=== PATIENT | female | born 1990 | race African-American/Black ===

== ENCOUNTER 2016-05-03 19:21 | Emergency (ER) | payer OTHER ==
[2016-05-03] MEDS ORDERED: Ketorolac Tromethamine 60 MG/2 ML VIAL ONE (21:49)
== END 2016-05-03 20:49 | disposition home or self-care (01) ==
LOC: NAV ERS 19:21
DX: R51 Headache (principal); J45.909 Unspecified asthma, uncomplicated; Z79.899 Other long term (current) drug therapy
CPT/HCPCS: 96372; J1885

== ENCOUNTER 2016-09-20 21:14 | Emergency (ER) | payer OTHER ==
[2016-09-20] MEDS ORDERED: Ibuprofen 200 MG TAB ONE (21:36)
== END 2016-09-20 21:53 | disposition home or self-care (01) ==
LOC: NAV ERS 21:14
DX: G89.18 Other acute postprocedural pain (principal); J45.909 Unspecified asthma, uncomplicated
CPT/HCPCS: 99283

== ENCOUNTER 2016-09-25 21:23 | Emergency (ER) | payer OTHER ==
[2016-09-25] MEDS ORDERED: Acetaminophen 325 MG TAB ONE (21:51)
== END 2016-09-25 22:05 | disposition home or self-care (01) ==
LOC: NAV ERS 21:23
DX: R10.2 Pelvic and perineal pain (principal); R51 Headache; J45.909 Unspecified asthma, uncomplicated
CPT/HCPCS: 99283

== ENCOUNTER 2017-01-12 12:50 | Emergency (ER) | payer OTHER ==
[2017-01-12] MEDS ORDERED: Ibuprofen 800 MG TAB ONE (13:06)
[2017-01-12] MEDS ORDERED: Amoxicillin/Potassium Clav 875 MG TAB ONE (13:06)
[2017-01-12] MEDS ORDERED: predniSONE 20 MG TAB ONE (13:06)
== END 2017-01-12 13:20 | disposition home or self-care (01) ==
LOC: NAV ERS 12:50
DX: J02.9 Acute pharyngitis, unspecified (principal); D50.0 Iron deficiency anemia secondary to blood loss (chronic); J45.909 Unspecified asthma, uncomplicated; Z79.899 Other long term (current) drug therapy
CPT/HCPCS: 99282; J7506

== ENCOUNTER 2017-01-15 18:36 | Emergency (ER) | payer OTHER ==
[2017-01-15] MEDS ORDERED: Acetaminophen 500 MG TAB ONE (19:03)
== END 2017-01-15 19:53 | disposition home or self-care (01) ==
LOC: NAV ERS 18:36
DX: J02.9 Acute pharyngitis, unspecified (principal); J06.9 Acute upper respiratory infection, unspecified; D50.0 Iron deficiency anemia secondary to blood loss (chronic); J45.909 Unspecified asthma, uncomplicated; Z79.899 Other long term (current) drug therapy
CPT/HCPCS: 99282

== ENCOUNTER 2017-06-04 18:18 | Emergency (ER) | payer OTHER ==
[2017-06-04 19:12] LABS: Bilirubin Negative (Negative); Blood, Urine Negative (Negative); Glucose, Urine (Dipstick) Negative (Negative); Leukocyte Negative (Negative); Nitrite Negative (Negative); Protein, Urine (Dipstick) Trace mg/dL (Neg-Trace); Urobilinogen 0.2 mg/dL (0.2-1.0)
[2017-06-04 19:13] LABS: Clarity SL HAZY (Clear)
[2017-06-04 19:14] LABS: Pregnancy Test - Urine (BHCG) Negative (Negative); Pregu Control Background? CLEAR/WHITE (CLR/WHITE); Pregu Control Bar Appear? YES (CONTROL BAR)
[2017-06-04 19:21] LABS: Amphetamine Not Detected (NotDetected); Barbiturates Screen Not Detected (NotDetected); Benzodiazepine Screen Not Detected (NotDetected); Cocaine Metabolite Screen Not Detected (NotDetected); Medtox Control Line Valid? VALID (VALID); Methadone Not Detected (NotDetected); Methamphetamine Not Detected (NotDetected); Opiate Screen Not Detected (NotDetected); Oxycodone Screen Not Detected (NotDetected); Phencyclidine (PCP) Not Detected (NotDetected); THC/Cannabinoid Screen Not Detected (NotDetected); Tricyclic Screen Not Detected (NotDetected)
[2017-06-04] MEDS ORDERED: Ondansetron ODT 4 MG TAB ONE (19:33)
[2017-06-04] MEDS ORDERED: Ketorolac Tromethamine 30 MG/ML VIAL ONE (19:33)
== END 2017-06-04 19:50 | disposition home or self-care (01) ==
LOC: NAV ERS 18:18
DX: S29.011A Strain of muscle and tendon of front wall of thorax, initial encounter (principal); G43.909 Migraine, unspecified, not intractable, without status migrainosus; E66.9 Obesity, unspecified; J45.909 Unspecified asthma, uncomplicated; X58.XXXA Exposure to other specified factors, initial encounter; Y92.218 Other school as the place of occurrence of the external cause; Y99.0 Civilian activity done for income or pay
CPT/HCPCS: 80306; 81003; 81025; 96374; J1885; Q0162

== ENCOUNTER 2017-07-21 14:10 | Emergency (ER) | payer OTHER ==
[2017-07-21] MEDS ORDERED: Ketorolac Tromethamine 60 MG/2 ML VIAL ONE (14:34)
== END 2017-07-21 15:05 | disposition home or self-care (01) ==
LOC: NAV ERS 14:10
DX: G44.209 Tension-type headache, unspecified, not intractable (principal); R07.89 Other chest pain; E66.9 Obesity, unspecified; J45.909 Unspecified asthma, uncomplicated; D50.9 Iron deficiency anemia, unspecified
CPT/HCPCS: 93005; 96372; J1885

== ENCOUNTER 2017-10-09 12:08 | Emergency (ER) | payer OTHER ==
[2017-10-09] MEDS ORDERED: Ibuprofen 800 MG TAB ONE (12:25)
--- NOTE | 2017-10-09 12:57 | RAD ---
FOUR VIEWS LEFT KNEE: CLINICAL HISTORY: Left knee injury, pain. FINDINGS: There is mild joint capsular distention. No fracture or dislocation. There is mild asymmetric joint compartment narrowing, medially. IMPRESSION: 1. No fracture. 2. There is joint capsular distention. Correlate clinically. POS: [facility]
== END 2017-10-09 13:37 | disposition home or self-care (01) ==
LOC: NAV ERS 12:08
DX: S83.92XA Sprain of unspecified site of left knee, initial encounter (principal); D50.0 Iron deficiency anemia secondary to blood loss (chronic); J45.909 Unspecified asthma, uncomplicated; Z79.899 Other long term (current) drug therapy; X50.1XXA Overexertion from prolonged static or awkward postures, initial encounter; Y93.68 Activity, volleyball (beach) (court)

== ENCOUNTER 2018-07-01 23:39 | Emergency (ER) | payer OTHER, SELFPAY ==
[2018-07-02] MEDS ORDERED: Naproxen 500 MG TAB ONE (00:38)
--- NOTE | 2018-07-02 10:07 | RAD ---
RIGHT HIP 2 VIEWS: Date: 07/02/18 INDICATION: Slipped and fell, right hip pain. COMPARISON: None. FINDINGS: No acute fracture or subluxation is evident. Bone mineralization appears within normal limits. Right SI joint normal appearing. IMPRESSION: No acute osseous abnormality. POS: [facility]
== END 2018-07-02 00:41 | disposition home or self-care (01) ==
LOC: NAV ERS 23:39
DX: S01.81XA Laceration without foreign body of other part of head, initial encounter (principal); S00.03XA Contusion of scalp, initial encounter; S70.01XA Contusion of right hip, initial encounter; D50.9 Iron deficiency anemia, unspecified; J45.909 Unspecified asthma, uncomplicated; Z79.51 Long term (current) use of inhaled steroids; Z79.899 Other long term (current) drug therapy; W18.2XXA Fall in (into) shower or empty bathtub, initial encounter
CPT/HCPCS: 12011

== ENCOUNTER 2018-08-07 12:39 | Emergency (ER) | payer SELFPAY ==
[2018-08-07] MEDS ORDERED: Lidocaine Viscous Sol 2% 15 ml UD Cup ONE (13:23)
[2018-08-07] MEDS ORDERED: Mag-Al Plus 1200 MG/1200 MG/120 MG/30 ML UDCUP ONE (13:23)
== END 2018-08-07 14:15 | disposition home or self-care (01) ==
LOC: NAV ERS 12:39
DX: R10.13 Epigastric pain (principal); J45.909 Unspecified asthma, uncomplicated; Z79.899 Other long term (current) drug therapy
CPT/HCPCS: 93005; 94760

== ENCOUNTER 2018-12-09 16:14 | Emergency (ER) | payer OTHER, SELFPAY ==
[2018-12-09 17:12] LABS: Bilirubin Negative (Negative); Blood, Urine Negative (Negative); Clarity Cloudy (Clear); Glucose, Urine (Dipstick) Negative (Negative); Leukocyte Small (Negative); Nitrite Negative (Negative); Protein, Urine (Dipstick) 30 mg/dL (Neg-Trace)
[2018-12-09 17:24] LABS: Pregnancy Test - Urine (BHCG) Negative (Negative); Pregu Control Background? CLEAR/WHITE (CLR/WHITE); Pregu Control Bar Appear? YES (CONTROL BAR)
[2018-12-09 17:26] LABS: Amphetamine Not Detected (NotDetected); Barbiturates Screen Not Detected (NotDetected); Benzodiazepine Screen Not Detected (NotDetected); Cocaine Metabolite Screen Not Detected (NotDetected); Medtox Control Line Valid? VALID (VALID); Methadone Not Detected (NotDetected); Methamphetamine Not Detected (NotDetected); Opiate Screen Not Detected (NotDetected); Oxycodone Screen Not Detected (NotDetected); Phencyclidine (PCP) Not Detected (NotDetected); THC/Cannabinoid Screen Not Detected (NotDetected); Tricyclic Screen Not Detected (NotDetected)
[2018-12-09 17:27] LABS: ALT (SGPT) 15 U/L (8-55); AST (SGOT) 13 U/L (5-34); Albumin 3.8 g/dL (3.5-5.0); Alkaline Phosphatase 76 U/L (40-150); Anion Gap 12 mmol/L (10-20); BUN (Urea Nitrogen) 11 mg/dL (7.0-18.7); Bilirubin, Total 0.3 mg/dL (0.2-1.2); Calc. Creatinine Clearance 0 mL/min (70-130); Carbon Dioxide 25 mmol/L (22-29); Chloride 107 mmol/L (98-107); Estimated GFR-MDRD 78; Globulin 3.7 g/dL (2.4-3.5); Glucose 90 mg/dL (70-105); Potassium 3.7 mmol/L (3.5-5.1); Protein, Total 7.5 g/dL (6.0-8.3); Sodium 140 mmol/L (136-145)
[2018-12-09 17:29] LABS: Bacteria/HPF 1+ HPF (None Seen); RBC/HPF 0-3 HPF (0-3); WBC/HPF 21-50 HPF (0-3)
[2018-12-09 18:03] LABS: Hemoglobin 8.9 g/dL (12.0-16.0); Mean Corpuscular HGB CONC 28.8 g/dL (32.0-36.0); Mean Corpuscular Hemoglobin 17.7 pg (27.0-31.0); Mean Corpuscular Volume 61.5 fL (78.0-98.0); Mean Platelet Volume 9.3 fL (7.4-10.4); Platelet Count 339 thou/uL (130-400); RBC Distribution Width 16.7 % (11.5-14.5); Red Blood Cell (RBC) Count 5.04 mill/uL (4.20-5.40); White Blood Cell (WBC) Count 7.2 thou/uL (4.8-10.8)
[2018-12-09 18:04] LABS: #Lymphocytes 1.4 thou/uL (1.20-3.40); #Monocytes 0.8 thou/uL (0.11-0.59); #Neutrophils 4.9 thou/uL (1.40-6.50); %Basophils 0.7 % (0.0-1.0); %Eosinophils 0.6 % (0.0-10.0); %Lymphocytes 19.8 % (21.0-51.0); %Monocytes 11.2 % (0.0-10.0); %Neutrophils 67.7 % (42.0-75.0)
[2018-12-09] MEDS ORDERED: Nitrofurantoin Macrocrystal 50 MG CAP ONE ×2 (18:04→18:05)
[2018-12-09 18:35] LABS: Hypochromia SLIGHT = 6-15 cells (100X) (0-5/hpf); Large Platelets SLIGHT; MDiff Complete? YES; Microcytosis MODERATE=15-30 cells (100X) (0-5/hpf); Platelet Morphology Comment Appears Increased; Polychromasia SLIGHT = 2-3 cells (100X) (0-2/hpf); Reflex for Review?? NO
== END 2018-12-09 18:15 | disposition home or self-care (01) ==
LOC: NAV ERS 16:14
DX: N39.0 Urinary tract infection, site not specified (principal); D50.9 Iron deficiency anemia, unspecified; J45.909 Unspecified asthma, uncomplicated; Z79.51 Long term (current) use of inhaled steroids; Z79.899 Other long term (current) drug therapy
CPT/HCPCS: 36415; 80053; 80306; 81003; 81015; 81025; 84443; 85025; 93005

== ENCOUNTER 2019-06-21 20:23 | Emergency (ER) | payer SELFPAY ==
[2019-06-21] MEDS ORDERED: Acetaminophen 500 MG TAB ONE (21:01)
--- NOTE | 2019-06-21 21:05 | RAD ---
RADIOGRAPH RIGHT ANKLE 3 VIEWS: DATE: 06/21/2019 HISTORY: 29-year-old female with acute traumatic right ankle pain FINDINGS: Ankle mortise is congruent. There is no evidence of fracture. There is no subluxation or dislocation. IMPRESSION: No fracture.
--- NOTE | 2019-06-21 21:22 | RAD ---
RADIOGRAPH RIGHT FOOT 3VIEWS: DATE: 06/21/2019 HISTORY: 29-year-old female with acute traumatic right foot pain FINDINGS: There is no evidence of fracture or dislocation. There is no evidence of periostitis, permeative lesi on, osteolytic lesion, or osteoblastic lesion. The joint spaces are maintained without erosions or significant osteophytes. IMPRESSION: Normal
== END 2019-06-21 22:25 | disposition home or self-care (01) ==
LOC: NAV ERS 20:23
DX: S93.491A Sprain of other ligament of right ankle, initial encounter (principal); S93.601A Unspecified sprain of right foot, initial encounter; J45.909 Unspecified asthma, uncomplicated; D50.9 Iron deficiency anemia, unspecified; Z79.51 Long term (current) use of inhaled steroids; Z79.899 Other long term (current) drug therapy; W01.0XXA Fall on same level from slipping, tripping and stumbling without subsequent striking against object, initial encounter; Y93.67 Activity, basketball

== ENCOUNTER 2020-02-24 18:36 | Emergency (ER) | payer SELFPAY ==
[2020-02-24] MEDS ORDERED: Acetaminophen 500 MG TAB ONE (19:41)
--- NOTE | 2020-02-24 21:01 | RAD ---
CHEST TWO VIEWS: History: Cough, fever. Comparison: 01-21-2006 FINDINGS: Heart size is normal. The lungs are clear. IMPRESSION: No significant acute intrathoracic disease. No evidence for pneumonia. POS: [facility]
[2020-02-25 17:53] LABS: SARS-CoV-2 by NAA DETECTED (NotDetected)
[2020-02-26 14:07] LABS: SARS-CoV-2 MS2 Positive; SARS-CoV-2 N Gene Positive; SARS-CoV-2 S Gene Positive; SARS-CoV-2 orf1ab Positive
== END 2020-02-24 21:20 | disposition home or self-care (01) ==
LOC: NAV ERS 18:36
DX: U07.1 COVID-19 (principal); D50.9 Iron deficiency anemia, unspecified; J45.909 Unspecified asthma, uncomplicated; Z79.899 Other long term (current) drug therapy
CPT/HCPCS: 71046; 87635; 87804; U0003

== ENCOUNTER 2021-02-22 14:00 | Emergency (ER) | payer OTHER, SELFPAY ==
[2021-02-22] MEDS ORDERED: Boostrix 0.5 ML (Tdap) VIAL ONE (14:18)
[2021-02-22] MEDS ORDERED: Bacitracin 1 PK ONE (14:47)
== END 2021-02-22 14:59 | disposition home or self-care (01) ==
LOC: NAV ERS 14:00
DX: S91.351A Open bite, right foot, initial encounter (principal); D50.9 Iron deficiency anemia, unspecified; J45.909 Unspecified asthma, uncomplicated; W54.0XXA Bitten by dog, initial encounter
CPT/HCPCS: 90471; 90715; 99283

== ENCOUNTER 2021-10-18 07:17 | Emergency (ER) | payer OTHER, MEDICAID ==
[2021-10-18] MEDS ORDERED: Ibuprofen 800 MG TAB ONE (07:57)
== END 2021-10-18 09:32 | disposition home or self-care (01) ==
LOC: NAV ERS 07:17
DX: R55 Syncope and collapse (principal); S13.4XXA Sprain of ligaments of cervical spine, initial encounter; W19.XXXA Unspecified fall, initial encounter
CPT/HCPCS: 72040; 93005

== ENCOUNTER 2022-04-10 06:40 | Emergency (ER) | payer OTHER ==
[2022-04-10] MEDS ORDERED: Ketorolac Tromethamine 60 MG/2 ML VIAL ONE (07:13)
== END 2022-04-10 07:55 | disposition home or self-care (01) ==
LOC: NAV ERS 06:40
DX: K08.89 Other specified disorders of teeth and supporting structures (principal); J45.909 Unspecified asthma, uncomplicated
CPT/HCPCS: 96372; 99282; J1885

== ENCOUNTER 2022-05-16 20:14 | Emergency (ER) | payer OTHER | END 2022-05-16 21:25 | disposition home or self-care (01) | LOC: NAV ERS 20:14 | DX: J06.9 Acute upper respiratory infection, unspecified (principal); H69.82 Other specified disorders of Eustachian tube, left ear; D50.9 Iron deficiency anemia, unspecified | CPT/HCPCS: 99283 ==

== ENCOUNTER 2022-11-05 12:04 | Emergency (ER) | payer OTHER | END 2022-11-05 12:40 | disposition home or self-care (01) | LOC: NAV ERS 12:04 | DX: H65.92 Unspecified nonsuppurative otitis media, left ear (principal); H73.92 Unspecified disorder of tympanic membrane, left ear | CPT/HCPCS: 99282 ==

== ENCOUNTER 2024-04-15 10:01 | Emergency (ER) | payer OTHER ==
[2024-04-15] MEDS ORDERED: Sodium Chloride 0.9% 1,000 ML ONE (10:38)
[2024-04-15] MEDS ORDERED: Metoclopramide HCl 10 MG (2 mL) VIAL ONE (10:38)
[2024-04-15] MEDS ORDERED: Oxymetazoline HCl 0.05% (30 ML BOT) ONE (10:38)
[2024-04-15] MEDS ORDERED: diphenhydrAMINE 50 MG/ML VIAL ONE (10:38)
[2024-04-15] MEDS ORDERED: Ketorolac Tromethamine 30 MG (1 mL) VIAL ONE (10:38)
== END 2024-04-15 12:00 | disposition home or self-care (01) ==
LOC: NAV ERS 10:01
DX: R51.9 Headache, unspecified (principal); J00 Acute nasopharyngitis [common cold]; J45.909 Unspecified asthma, uncomplicated; Z79.899 Other long term (current) drug therapy
CPT/HCPCS: 96365; 96375; J1200; J1885; J2765; J7030

== ENCOUNTER 2024-04-16 15:32 | Emergency (ER) | payer OTHER ==
[2024-04-16] MEDS ORDERED: Morphine 4 MG/ML VIAL ONE (16:18)
[2024-04-16] MEDS ORDERED: Morphine 2 MG/ML VIAL ONE (16:18)
== END 2024-04-16 17:33 | disposition home or self-care (01) ==
LOC: NAV ERS 15:32
DX: R68.84 Jaw pain (principal); J45.909 Unspecified asthma, uncomplicated; F17.290 Nicotine dependence, other tobacco product, uncomplicated; Z79.51 Long term (current) use of inhaled steroids
CPT/HCPCS: 96372; 99283; J2270; J2272

== ENCOUNTER 2024-10-27 06:02 | Emergency (ER) | payer SELFPAY ==
[2024-10-27] MEDS ORDERED: Ondansetron PF 4 MG/2 ML Vial ONE (06:26)
[2024-10-27] MEDS ORDERED: Ketorolac Tromethamine 30 MG (1 mL) VIAL ONE (06:26)
[2024-10-27 06:36] LABS: Glucose, Urine (Dipstick) Negative (Negative); Leukocyte Small (Negative); Pregnancy Test - Urine (BHCG) Negative (Negative); Pregu Control Background? CLEAR/WHITE (CLR/WHITE); Pregu Control Bar Appear? YES (CONTROL BAR); Protein, Urine (Dipstick) 30 mg/dL (Neg-Trace); Specific Gravity, Urine Greater/Equal 1.030 (1.005-1.030)
[2024-10-27 06:40] LABS: Bacteria/HPF None Seen HPF (None Seen); CAUTI Indications for Culture Dysuria,urgency,freq; Mucous/LPF 1+ LPF (<2+); RBC/HPF None Seen HPF (0-3)
[2024-10-27 06:41] LABS: #Basophils 0.1 thou/uL (0.0-0.2); #Eosinophils 0.1 thou/uL (0.0-0.7); #Lymphocytes 1.6 thou/uL (1.20-3.40); #Monocytes 0.9 thou/uL (0.11-0.59); #Neutrophils 8.5 thou/uL (1.40-6.50); %Basophils 0.7 % (0.0-1.0); %Eosinophils 0.7 % (0.0-10.0); %Lymphocytes 14.6 % (21.0-51.0); %Monocytes 7.9 % (0.0-10.0); %Neutrophils 76.2 % (42.0-75.0); Hematocrit 40.3 % (36.0-47.0); Hemoglobin 11.8 g/dL (12.0-16.0); Mean Corpuscular Hemoglobin 20.8 pg (27.0-31.0); Mean Corpuscular Volume 71.0 fl (78.0-98.0); Platelet Count 266 10x3/uL (130-400); Red Blood Cell (RBC) Count 5.68 mill/uL (4.20-5.40); White Blood Cell (WBC) Count 11.2 10x3/uL (4.8-10.8)
[2024-10-27 06:41] LABS: Urine Culture Reflex Yes Yes
[2024-10-27] MEDS ORDERED: Lidocaine Viscous Sol 2% 15 ml UD Cup ONE (06:54)
[2024-10-27] MEDS ORDERED: Mag-Al Plus 1200/1200/120 MG (30 mL) UDCUP ONE (06:54)
[2024-10-27 06:57] LABS: ALT (SGPT) 25 U/L (Less than 34); AST (SGOT) 18 U/L (11-34); Albumin 3.8 g/dL (3.1-4.5); Alkaline Phosphatase 70 U/L (40-110); Anion Gap 14 mmol/L (10-20); BUN (Urea Nitrogen) 6 mg/dL (7.0-18.7); Bilirubin, Total 0.6 mg/dL (0.3-1.2); Calc. Creatinine Clearance 0 mL/min (70-130); Calcium 8.7 mg/dL (7.8-10.44); Carbon Dioxide 23 mmol/L (22-29); Chloride 104 mmol/L (98-107); Globulin 4.0 g/dL (2.4-3.5); Glucose 113 mg/dL (70-105); Lipase 16 U/L (8-78); Potassium 3.5 mmol/L (3.5-5.1); Sodium 137 mmol/L (136-145)
[2024-10-27] MEDS ORDERED: Iopamidol 370 76% 100 ML VIAL ONE (09:00)
== END 2024-10-27 10:46 | disposition short-term general hospital (02) ==
LOC: NAV ERS 06:02
DX: R10.13 Epigastric pain (principal); R11.0 Nausea; J45.909 Unspecified asthma, uncomplicated; D64.9 Anemia, unspecified; F17.290 Nicotine dependence, other tobacco product, uncomplicated; Z79.51 Long term (current) use of inhaled steroids; Z79.899 Other long term (current) drug therapy
CPT/HCPCS: 74177; 80053; 81001; 81025; 83690; 85025; 87086; 96374; 96375; J1885; J2405; J3010; J7030; Q9967

== ENCOUNTER 2024-10-28 16:48 | Emergency (ER) | payer SELFPAY | END 2024-10-28 17:28 | disposition home or self-care (01) | LOC: NAV ERS 16:48 | DX: K80.20 Calculus of gallbladder without cholecystitis without obstruction (principal); J45.909 Unspecified asthma, uncomplicated; F17.290 Nicotine dependence, other tobacco product, uncomplicated; Z79.51 Long term (current) use of inhaled steroids | CPT/HCPCS: 99283 ==

== ENCOUNTER 2025-01-31 19:09 | Emergency (ER) | payer SELFPAY | END 2025-01-31 20:26 | disposition home or self-care (01) | LOC: NAV ERS 19:09 | DX: K04.7 Periapical abscess without sinus (principal); J45.909 Unspecified asthma, uncomplicated; Z79.51 Long term (current) use of inhaled steroids | CPT/HCPCS: 99282 ==